=== PATIENT | male | born 1990 | race African-American/Black ===

== ENCOUNTER 2020-12-04 03:17 | Emergency (ER) | payer OTHER ==
[~2020-12-04] VITALS: Ht 188 cm; Wt 85.4 kg
[2020-12-04] MEDS ORDERED: PLEASE ENTER ALLERGIES MC SCH (03:30)
[2020-12-04] MEDS ORDERED: SODIUM CHLORIDE FLUSH 10ML SYR IVF ONE (03:30)
[2020-12-04] MEDS ORDERED: PLEASE ENTER HEIGHT AND WEIGHT MC SCH (03:30)
[2020-12-04] MEDS ORDERED: SODIUM CHLORIDE 0.9% 1,000ML IVBOLUS ONE (03:30)
--- NOTE | 2020-12-04 03:33 | NUR ---
MT: Mom; Kellie Phillips- [phone]
--- NOTE | 2020-12-04 03:38 | NUR ---
PT TAKEN TO CT, TOLERATED WELL. VSS. WILL CONTINUE TO MONITOR.
[2020-12-04 03:41] LABS: BASOPHILS % (AUTO) 1 % (0-1); EOSINOPHILS % (AUTO) 1 % (1-7); LYMPHOCYTES % (AUTO) 54 % (22-44); MEAN CORPUSCULAR HEMOGLOBIN 23.7 pg (27.5-34.5); MEAN CORPUSCULAR HGB CONC 32.2 g/dL (33.2-36.2); MEAN PLATELET VOLUME 9.1 fL (7.4-10.4); MONOCYTES % (AUTO) 9 % (2-9); NEUTROPHILS % (AUTO) 35 % (42-75); PLATELET COUNT 153 x10^3/uL (130-400); RED BLOOD COUNT 5.84 x10^6/uL (4.38-5.82); RED CELL DISTRIBUTION WIDTH 15.1 % (9.4-14.8)
[2020-12-04] MEDS ORDERED: MORPHINE SULFATE 4 MG/ML, 1ML ONE (03:45)
[2020-12-04] MEDS ORDERED: ONDANSETRON 2MG/ML, 2ML ONE (03:45)
[2020-12-04 03:47] LABS: ALANINE AMINOTRANSFERASE 20 U/L (12-78); ANION GAP 7 mmol/L (5-15); CHLORIDE 109 mmol/L (98-107); CREATININE 1.17 mg/dL (0.7-1.3)
[2020-12-04 03:49] LABS: ALKALINE PHOSPHATASE 67 U/L (45-117); BILIRUBIN,TOTAL 0.6 mg/dL (0.2-1.0); TOTAL PROTEIN 8.4 g/dL (6.4-8.2)
--- NOTE | 2020-12-04 03:52 | NUR ---
PATIENT MEDICATION RELATED TO PAIN TO HEAD REPORTED BY PATIENT. PATIENT IS ABLE TO FORM COMPLETE SENTENCES, [id number]. NO NOTED ACUTE DISTRESS AT THIS TIME. PT'S BELONGINGS PLACED IN BROWN PAPER BAGS. [employer] AT BEDSIDE WITH PATIENT AT THIS TIME. VSS. WILL CONTINUE TO MONITOR.
[2020-12-04] MEDS ORDERED: ONDANSETRON 2MG/ML, 2ML IVPush ONE (04:00)
[2020-12-04] MEDS ORDERED: morphine SULFATE 10 MG/ML, 1ML IVPush ONE (04:00)
--- NOTE | 2020-12-04 04:12 | NUR ---
PATIENT UPDATED ON PLAN OF CARE. PATIENT WILL BE TRANSFERRED TO [facility].
--- NOTE | 2020-12-04 04:15 | NUR ---
CALLED PATIENT'S MOTHER PER PATIENT REQUEST.
[2020-12-04 04:16] LABS: INTERNATIONAL NORMALIZED RATIO 0.98 (0.93-1.1); PROTHROMBIN TIME 10.5 Seconds (9.6-11.5)
--- NOTE | 2020-12-04 04:27 | NUR ---
REPORT GIVEN TO [facility] FOR TRANSFER TO [facility]. NO NOTED ADDITIONAL QUESTIONS AT THIS TIME. VSS UPON TRANSFER. NO CHANGE IN PT STATUS.
--- NOTE | 2020-12-04 04:28 | NUR ---
BELONGINGS SENT WITH PATIENT TO [facility].
[2020-12-04 04:29] VITALS: BP 126/86
== END 2020-12-04 05:00 | disposition home or self-care (01) ==
LOC: ED 03:26
DX: S06.5X0A Traumatic subdural hemorrhage without loss of consciousness, initial encounter (principal); S06.6X0A Traumatic subarachnoid hemorrhage without loss of consciousness, initial encounter; F10.129 Alcohol abuse with intoxication, unspecified; R00.0 Tachycardia, unspecified; X58.XXXA Exposure to other specified factors, initial encounter; Y93.89 Activity, other specified; Y92.89 Other specified places as the place of occurrence of the external cause; Y99.8 Other external cause status
CPT/HCPCS: 36415; 70450; 80053; 85025; 85610; 85730; 93005; 96361; 96374; 96375; 99291; J2270; J2405; J7030